=== PATIENT | male | born 1970 | race Caucasian/White ===

== ENCOUNTER → 2022-09-15 | Day surgery (SDC) | payer BC ==
[~2022-09-15] MED LIST: ACETAMINOPHEN 1000 MG/100 ML 100 ML IV ONE; APPLE CIDER VI300 MG PO; BUPIVACAINE 0.25% 30ML SDV ONE; BUPIVACAINE HCL 0.5% INJ 30 ML VIAL INJ ONE; CELEBREX200 MG PO; COQ-10100 MG PO; CRESTOR10 MG PO; DEXAMETHASONE SOD PHOS INJ 4 MG/ML SDV ONE; FENTANYL CITRATE/PF 100MCG/2 ML INJ ONE; LIDOCAINE 2%/ EPINEPHRINE 20ML MDV ONE; LIDOCAINE HCL 2% LOCAL 20 ML VIAL ONE; LIDOCAINE HCL 2% LOCAL INJ 5 ML SDV VIAL INJ ONE; MIDAZOLAM HCL 2 MG/2 ML VIAL ONE; MULTI-VITAMIN1 EACH PO; ONDANSETRON HCL INJ 2MG/ML 2ML 2 MG/ML VIAL ONE; POVIDONE IODINE 0.05% 0.05 % ML PO ONE; PROPOFOL IV EMULSION 10 MG/ML 20 ML VIAL ONE; SEVOFLURANE INHAL SOLN 250 ML PEN BTL ONE; TURMERIC500 M1 PO; VITAMIN C1000 MG PO; ZOLPIDEM TARTRAT5 MG PO
[2022-09-15 10:00] VITALS: BP 135/81
== END | disposition home or self-care (01) ==
LOC: OR 06:55
PROVIDERS: ATTEND Orthopaedic Surgery
DX: S83.281A Other tear of lateral meniscus, current injury, right knee, initial encounter (principal); R22.41 Localized swelling, mass and lump, right lower limb; M22.41 Chondromalacia patellae, right knee; M67.51 Plica syndrome, right knee; G47.00 Insomnia, unspecified; G89.29 Other chronic pain; R00.1 Bradycardia, unspecified; W18.39XA Other fall on same level, initial encounter; Z88.8 Allergy status to other drugs, medicaments and biological substances; Z01.810 Encounter for preprocedural cardiovascular examination; Z79.899 Other long term (current) drug therapy
CPT/HCPCS: 29882; 88112; 88305; 93005; C1713; J0131; J0690; J1100; J2001 ×3; J2250; J2405; J2704; J3010; 88300